=== PATIENT | male | born 2005 | race Hispanic/Latino ===

== ENCOUNTER 2024-06-20 11:43 | Emergency (ER) | payer BC ==
[~2024-06-20] VITALS: Ht 152.4 cm; Wt 56.2 kg
[2024-06-20] MEDS ORDERED: IBUP-2077 PO (12:05)
[2024-06-20] MEDS ORDERED: CLIN-141 PO (12:05)
--- NOTE | 2024-06-20 12:05 | ERN ---
ED Note History of Present Illness Stated Complaint: INGROWN NAIL INFECTED Time Seen by MD: 11:47 Dictation: PATIENT IS A 18-YEAR-OLD MALE HERE WITH A AN INGROWN NAIL TO HIS RIGHT GREAT TOE HE HAS HAD FOR TWO WEEKS. NO FEVER NO CHILLS NO NAUSEA VOMITING. NO DIABETES FATHER STATES THEY NORMALLY GO TO DAY AND NIGHT CLINIC HOWEVER WHEN THEY CALLED THIS MORNING Allergies: Coded Allergies: No Known Drug Allergies (Unverified Allergy, Unknown, 06/20/24) Home Meds Active Scripts Ibuprofen (Ibuprofen 800 mg Tab) 800 Mg Tab, 800 MG PO Q8H PRN for fever or pain, #30 TAB 0 Refills Prov:DAQUAN ELLIS GUIDANCE DIRECTOR 06/20/24 Clindamycin HCl (Clindamycin HCl) 300 Mg Capsule, 1 CAP PO QID for 10 Days, #40 CAP 0 Refills Prov:DAQUAN ELLIS GUIDANCE DIRECTOR 06/20/24 Past Medical History RN Note Reviewed/Agreed w/PFSH: Yes Review of System Dictation CONSTITUTIONAL: NEGATIVE EXCEPT FOR HPI HEAD/FACE: NEGATIVE EXCEPT FOR HPI EENT: NEGATIVE EXCEPT FOR HPI RESPIRATORY: NEGATIVE EXCEPT FOR HPI GASTROINTESTINAL/ABDOMINAL: NEGATIVE EXCEPT FOR HPI GENITOURINARY: NEGATIVE EXCEPT FOR HPI MUSCULOSKELETAL: NEGATIVE EXCEPT FOR HPI RIGHT GREAT TOE PAIN INTEGUMENTARY: NEGATIVE EXCEPT FOR HPI NEUROLOGICAL/PSYCH: NEGATIVE EXCEPT FOR HPI HEMATOLOGIC/LYMPHATIC: NEGATIVE EXCEPT FOR HPI ALL SYSTEMS NEGATIVE, EXCEPT NOTED ABOVE. 13 POINT REVIEW OF SYSTEMS ASSESSED AND ALL NEGATIVE EXCEPT FOR ABOVE. Initial Vital Sign VS Vital Signs Date Time Temp Pulse Resp B/P (MAP) Pulse Ox O2 Delivery O2 Flow Rate FiO2 06/20/24 12:12 97.9 80 16 120/75 99 Room Air 0 06/20/24 12:40 21 Physical Exam Dictation VITAL SIGNS REVIEWED GENERAL APPEARANCE: ALERT, ORIENTED X 3, MY ACUTE DISTRESS, WELL DEVELOPED, NOURISHED. HEAD AND FACE: NON-TRAUMATIC. EYES: PERRL, PINK CONJUNCTIVAS, EYELID NO TRAUMA, ANTERIOR CHAMBER WITH ARCUS SENILIS. EARS: PINNAS INTACT AND NO SIGNS OF TRAUMA OR ERYTHEMA EAR CANALS CLEAR AND NO DISCHARGE TM NO ERYTHEMA NOSE: NO DISCHARGE, NO BLEEDING. OROPHARYNX: MOUTH NORMAL, TONGUE PINK, PHARYNX CLEAR,NO ERYTHEMA, TONSILS NO EXUDATES, NO ABSCESSES NOTED, MUCOUS MEMBRANE MOIST NECK: SUPPLE, NON-TENDER, NO THYROMEGALY, NO MASSES, NO JVD, NO BRUITS BREAST:DEFERRED CHEST:NO TENDERNESS, NO CREPITUS, NO PARADOXICAL MOVEMENT, NO RETRACTIONS LUNGS:CLEAR, WELL-VENTILATED, SYMMETRIC, NO RALES, NO WHEEZING, NO RHONCHI, NO STRIDOR, GOOD BREATH SOUNDS BILATERALLY HEART: REGULAR RATE, REGULAR RHYTHM, NO MURMUR, NO GALLOPS VASCULAR: NO PERIPHERAL EDEMA, ABDOMEN: SOFT, POSITIVE BOWEL SOUNDS, NONDISTENDED, NO GUARDING, NONTENDER, NO REBOUND, NO MASSES NO HEPATOMEGALY, NO SPLENOMEGALY, NO CASTILLO'S SIGN, NO HERNIAS. RECTAL: DEFERRED GENITAL: DEFERRED NEUROLOGICAL: NORMAL SPEECH, MOTOR FUNCTION INTACT, SENSORY FUNCTION INTACT MUSCULOSKELETAL: NECK NONTENDER, FULL RANGE OF MOTION, BACK NONTENDER, FULL RANGE OF MOTION, EXTREMITIES: MILD ERYTHEMA TENDERNESS TO RIGHT LATERAL GREAT TOENAIL CUTICLE. SKIN: COLOR PINK, DRY, NO TURGOR, NO RASH, NO LACERATIONS, NO ABRASIONS, NO CONTUSIONS. LYMPHATIC: DEFERRED Results (Laboratory/Radiology) Labs Reviewed?: Yes ED Course ED Course Orders Procedure Category Date Status Time Clindamycin 150mg Cap PHA 06/20/24 Complete (Cleocin 150mg Cap 12:30 Ibuprofen 800 Mg Tab PHA 06/20/24 Complete (Motrin) 12:30 Current Medications Medications (Trade) Dose Ordered Sig/Geeta Route PRN Reason Start Time Stop Time Status Last Admin Dose Admin Clindamycin HCl (Cleocin 150mg Cap) 600 mg ONCE ONCE PO 06/20/24 12:30 06/20/24 12:31 DC 06/20/24 12:25 Ibuprofen (moTRIN) 800 mg ONCE ONCE PO 06/20/24 12:30 06/20/24 12:31 DC 06/20/24 12:25 Vital Signs Date Time Temp Pulse Resp B/P (MAP) Pulse Ox O2 Delivery O2 Flow Rate FiO2 06/20/24 12:40 97.9 80 16 118/76 99 Room Air* 0 21 06/20/24 12:12 97.9 80 16 120/75 99 Room Air 0 Medical Decision Making [facility] 1202/MEDICAL DISCHARGE MAKING WE WILL BE CONSISTENT OF EMPIRIC TREATMENT FOR PARONYCHIA PATIENT IS STARTED ON CLINDAMYCIN REFERRED TO DR. HERNANDEZ DX & DISP Disposition: Discharge Departure Impression: Primary Impression: Paronychia of great toe, right Condition: Stable Scripts Ibuprofen (Ibuprofen 800 mg Tab) 800 Mg Tab 800 MG PO Q8H PRN for fever or pain, #30 TAB 0 Refills Prov: DAQUAN ELLIS NP 06/20/24 Clindamycin HCl (Clindamycin HCl) 300 Mg Capsule 1 CAP PO QID for 10 Days, #40 CAP 0 Refills Prov: DAQUAN ELLIS GUIDANCE DIRECTOR 06/20/24 Additional Instructions: FOLLOW-UP WITH PRIMARY CARE PROVIDER IN 1 TO 2 DAYS. TAKE MEDICATIONS DIRECTED HERE IN THE EMERGENCY ROOM. OKAY TO CONTINUE HOME MEDICATIONS UNLESS OTHERWISE DISCUSSED DURING YOUR VISIT IN THE EMERGENCY ROOM TODAY. RETURN TO YOUR NEAREST EMERGENCY ROOM IF SYMPTOMS WORSEN OR IF THERE IS NO IMPROVEMENT. CALL 911 IF YOU NEED IMMEDIATE ASSISTANCE. TAKE TYLENOL OR MOTRIN [id number] NEEDED AND IF NO CONTRAINDICATIONS ARE PRESENT. INCREASE ORAL HYDRATION. A WOUND CULTURE OR URINE CULTURE WAS ORDERED HERE IN THE EMERGENCY ROOM DEPARTMENT PLEASE FOLLOW-UP WITH PRIMARY CARE PROVIDER AND ADVISE THEM TO GET REPEAT PORTS FROM OUR FACILITY. IF YOU HAD ANY GHISLAINE WRAP/SPLINTS THAT WERE APPLIED HERE, PLEASE DO NOT REMOVE THEM UNTIL YOU SEE YOUR PRIMARY CARE OR SPECIALTY. TAKE ANTIBIOTICS DIRECTED UNTIL GONE. WARM WATER SOAKS TO RIGHT FOOT THREE TO 4 TIMES A DAY. CALL INSTRUMENT AND CONTROL TECHNICIAN FOR AN APPOINTMENT TODAY OR TOMORROW. Referrals: SELF,REFERRAL (PCP) PAULINO HERNANDEZ DPM Time of Disposition: 12:04 I have reviewed the case, and I agree with, Diagnosis and Plan I performed the substantive portion of the visit. I have reviewed and personally made and approve the management plan that is documented in the notes by myself or the JUAN. I acknowledge full responsibility for the patient's [facility] plan. DAQUAN ELLIS NP Jun 20, 2024 12:05 JACOB ALLEN MD Jun 20, 2024 16:20
[2024-06-20] MEDS: CLINDAMYCIN 150 MG CAP PO ONE (12:25)
[2024-06-20] MEDS: ibuPROFEN 800 MG TAB PO ONE (12:25)
[2024-06-20 12:40] VITALS: BP 118/76; PULSE 80; RESP 16; TEMP 97.9; O2SAT 99
== END 2024-06-20 12:42 | disposition home or self-care (01) ==
LOC: EDH 11:43
DX: L03.031 Cellulitis of right toe (principal)
CPT/HCPCS: 99283